=== PATIENT | male | born 1975 | race Caucasian/White ===

== ENCOUNTER → 2022-04-07 13:47 | Outpatient (CLI) | payer OTHER, SELFPAY ==
--- NOTE | 2022-04-07 13:48 | DI.RAD.S_ITS ---
PROCEDURE: FL BARIUM SWALLOW INDICATIONS: difficulty swallowing COMPARISON: None. FINDINGS: Function: There is minimally delayed transit of oral contrast in the prone/right anterior oblique positioning but otherwise normal esophageal peristalsis. No territory contractions identified. No elicited gastroesophageal reflux. There is normal transit of a calibrated barium tablet through the esophagus into the stomach. Morphology: Air-contrast images demonstrate normal mucosal morphology. Single contrast views show no esophageal strictures, extrinsic mass effects, or diverticula. Limited images of the stomach demonstrate normal appearance. IMPRESSION: A few nonspecific episode of minimally delayed transit of oral contrast in the prone/right anterior oblique position, but otherwise normal esophageal peristalsis. This is likely related to positioning as no abnormalities were identified in the upright projections. Overall, negative swallow study. Dictated by: Horacio Roche M.D. on 04/12/2022 at 18:34 Approved by: Horacio Roche M.D. on 04/12/2022 at 18:42
== END ==
PROVIDERS: PCP Nurse Practitioner; Referring Provider Nurse Practitioner; Visit Provider Nurse Practitioner
DX: R13.10 Dysphagia, unspecified (principal)
CPT/HCPCS: 74220

== ENCOUNTER → 2022-06-18 08:29 | Outpatient (CLI) | payer OTHER, SELFPAY ==
[2022-06-18 09:37] LABS: Influenza A - CEPHEID Flu A POSITIVE (NEGATIVE); Influenza B - CEPHEID Flu B NEGATIVE (NEGATIVE); Respiratory Syncytial Virus Negative (Negative)
[2022-06-18 09:46] LABS: COVID-19 CEPHEID 4-PLEX PCR Negative (Negative)
== END ==
PROVIDERS: PCP Nurse Practitioner; Visit Provider Nurse Practitioner Family
DX: R50.9 Fever, unspecified (principal); Z20.822 Contact with and (suspected) exposure to COVID-19
CPT/HCPCS: 0241U